=== PATIENT | female | born 1965 | race Caucasian/White ===

== ENCOUNTER 2023-09-13 08:04 | Day surgery (SDC) | payer MEDICARE ==
[2023-09-12 15:36] VITALS: BMI 32.4
[2023-09-13] MEDS ORDERED: Lidocaine 2% MPF 10 ML AMP (For Epidural Use) ONE (10:24)
[2023-09-13] MEDS ORDERED: PROPOFOL 60 ML ONE (10:24)
[2023-09-13] MEDS ORDERED: PROPOFOL 20 ML ONE (12:17)
== END 2023-09-13 13:20 | disposition home or self-care (01) ==
LOC: CSHSDC 08:04
PROVIDERS: ATTEND Internal Medicine Gastroenterology
PROC: 0DJ08ZZ Inspection of Upper Intestinal Tract, Via Natural or Artificial Opening Endoscopic (ICD-10-PCS; principal; 2023-09-13)
PROC: 0DJD8ZZ Inspection of Lower Intestinal Tract, Via Natural or Artificial Opening Endoscopic (ICD-10-PCS; 2023-09-13)
DX: Z12.11 Encounter for screening for malignant neoplasm of colon (principal); D50.9 Iron deficiency anemia, unspecified; K21.9 Gastro-esophageal reflux disease without esophagitis; G20.A1 Parkinson's disease without dyskinesia, without mention of fluctuations; E11.9 Type 2 diabetes mellitus without complications; G43.909 Migraine, unspecified, not intractable, without status migrainosus; F32.A Depression, unspecified; F41.9 Anxiety disorder, unspecified; G30.0 Alzheimer's disease with early onset; F02.80 Dementia in other diseases classified elsewhere, unspecified severity, without behavioral disturbance, psychotic disturbance, mood disturbance, and anxiety; E78.5 Hyperlipidemia, unspecified; Z88.5 Allergy status to narcotic agent; Z86.73 Personal history of transient ischemic attack (TIA), and cerebral infarction without residual deficits; Z90.49 Acquired absence of other specified parts of digestive tract; Z90.710 Acquired absence of both cervix and uterus; Z98.890 Other specified postprocedural states
CPT/HCPCS: J2704